=== PATIENT | female | born 1960 | race Caucasian/White ===

== ENCOUNTER → 2020-04-07 11:41 | Outpatient (CLI) | payer OTHER, SELFPAY ==
[2020-04-07 13:51] LABS: COVID19 -Nasal RAPID Negative (Negative)
== END ==
PROVIDERS: PCP Family Medicine; Visit Provider Specialist
DX: Z03.818 Encounter for observation for suspected exposure to other biological agents ruled out (principal)
CPT/HCPCS: 87635

== ENCOUNTER 2020-04-10 09:24 | Day surgery (SDC) | payer OTHER, SELFPAY ==
[2020-04-06 08:19] VITALS: BMI 27.5
[2020-04-10] VITALS (14 sets, daily range): BP systolic 95–124; BP diastolic 50–83; PULSE 65–86; RESP 14–21; TEMP 36.1–37.4; O2SAT 93–96; BMI 26.8
--- NOTE | 2020-04-10 | PATH_ITS ---
[facility] Accession Number: [id number] . 01 Material submitted: . uterus - UTERUS WITH BILATERAL FALLOPIAN TUBES AND OVARIES . 02 Diagnosis: Uterus with Bilateral Fallopian Tubes and Ovaries, Supracervical Hysterectomy and Bilateral Salingo-oophorectomy (Morcellated Specimen Weight 44 grams): Disordered proliferative endometrium; negative for glandular hyperplasia, cytologic atypia or malignancy. Endometrium with a benign endometrial polyp (10 mm in greatest dimension). Myometrium with no significant histomorphologic abnormality. Uterine serosa with no significant histomorphologic abnormality. Ovaries x2 with scant, benign cortical cysts (less than 1 mm). Fallopian tubes x2; negative for epithelial atypia or malignancy. [facility] 04/13/2020 1059 Local . 02 Electronically signed: . Lauryn Sapp MD, Pathologist NPI- [id number] . 01 Gross description: . Received in formalin, labeled with the patient's name and uterus with bilateral fallopian tubes and ovaries, is a morcellated supracervically amputated uterus, with bilateral adnexa in container. The morcellated uterus (44 grams, 6.0 x 5.0 x 3.0 cm in aggregate) is covered with purple-burks dull smooth serosa, pink-burks trabeculated myometrium up to 1.9 cm thick in one fragment and pink-burks flat endometrium up to 0.1 cm thick. A 1.0 x 0.8 x 0.5 cm pedunculated polyp is identified within one fragment, 2.5 cm to the supracervical amputation margin, and has a pink-burks soft solid cut surface. No myometrial nodule is identified. Bilateral adnexa are separate in container. Fallopian tube #1-fimbriated, 4.5 cm length by 0.5 cm diameter, purple-burks serosa, lumen up to 0.2 cm. Ovary #1-2.3 x 1.0 x 0.6 cm, yellow-burks convoluted outer surface, unremarkable pale burks ovarian parenchyma. Fallopian tube #2-fimbriated, 6.5 cm length by 0.5 cm diameter, purple-burks dull serosa, lumen up to 0.2 cm. Ovary #2-2.4 x 1.0 x 0.6 cm, convoluted pale burks outer surface, unremarkable pale burks ovarian parenchyma. Deputy Program Manager sections are submitted. . Summary of sections: A1-2. Endometrial polyp, bisected and entirely submitted, one piece each. A3. Deputy Program Manager endomyometrium, two pieces. A4. Ovary #1, senior patient account representative bisected half, one piece. A5. Fallopian tube #1, fimbria and cross-sections, four pieces. A6. Ovary #2, senior patient account representative bisected half, one piece. A7. Fallopian tube #2, fimbria and cross-sections, four pieces. ([id number]) /MRV 04/11/2020 [facility] Local . 02 Pathologist provided ICD-10: N92.0 . 02 CPT . 163189 Performed at: 01 [facility] [address], [place], [place] [id number] MD Isreal Carlin MD Phone: [phone] Performed at: 02 [facility] [address] [place], [place] [id number] MD Vanessa Hanson MD Phone: [phone]
[2020-04-10] MEDS: ACETAMINOPHEN 325 MG TABLET 975 MG PO (10:02)
[2020-04-10] MEDS: LACTATED RINGERS 1,000 ML 42 ML IV (10:02)
--- NOTE | 2020-04-10 10:32 | PM.PREOP ---
Pre-operative Note COVID-19 COVID-19 status: Negative Result date/Date tested (Pos, Neg/Pending): 04/07/20 Interval Note History & Physical reviewed/Exam performed by Physician: Yes Changes to H&P: No
[2020-04-10] MEDS: CLINDAMYCIN 900 MG/50 ML PIGGYBACK 50 MG IV (10:50)
--- NOTE | 2020-04-10 11:20 | SUR.OPER ---
Lithotomy on padded OR bed. Mullins Pad Positioner under torso. Head on pillow, arms padded and tucked at sides. Legs secured in padded yellow fins stirrups.
[2020-04-10] MEDS: BUPIVACAINE 0.5% W/ EPI (PF) 30 ML VIAL INJ (11:24)
[2020-04-10] MEDS: ROPIVACAINE 0.2% PF 2 MG/ML 10ML AMP 20 ML INJ (11:28)
--- NOTE | 2020-04-10 12:21 | P.OP_ITS ---
Operative Date/Time/Diagnoses Date of procedure: 04/10/20 Time of procedure: 12:21 Pre-op diagnosis: Menorrhagia Post-op diagnosis: same Procedure & Clinicians Procedure: Laparoscopic supracervical hysterectomy with bilateral salpingo oophorectomies Same procedure as scheduled: Yes Indications: Menorrhagia Electrician'S Assistant: Chantale Rutherford Anesthesia Type: General Operative Notes Findings: Normal tubes and ovaries, normal bowel surface, adhesions of the omentum to the anterior abdominal wall below the umbilicus. Adhesion of the uterus to the anterior abdominal wall. Closure Type: primary Specimen(s): other (Uterus above the level of bladder with bilateral tubes and ovaries) Estimated Blood Loss (mL): 50 Blood products transfused: none Procedure in detail: Patient is brought to the operating room where she underwent general anesthesia and placed in low yellowfin stirrups. She was prepped and draped in the usual sterile fashion. A check list was reviewed with the staff in the room prior to beginning of the case. Patient had pulsatile stockings in place and functional. 900 mg of clindamycin were in prior to beginning of the case.. A Daniel catheter was placed. A single-tooth tenaculum was placed on the anterior lip of the cervix and the cervix dilated to a #6 Hegar dilator. The uterine manipulator was placed through the cervix into the uterus with the balloon inflated with 3 mL of air. The area of the umbilical incision and the 5 mm right and left lower quadrant incisions were injected with Marcaine. An incision was made with scalpel. The verries needle was placed into the abdomen and confirmed in the appropriate place with withdrawal on a syringe and then free flow of fluid down through the needle. The abdomen was insufflated with CO2. The needle was removed and a 5 mm trocar placed without difficulty. There did not appear to be any damage is placement of the trocar. The right and left lower quadrant incisions were made with the scalpel and the trochars placed without damage to internal structures. The PK forceps were used to cauterize and cut the adhesions of the omentum to the anterior abdominal wall and free the uterus from the anterior abdominal wall. The PK forceps were used to cauterize the infundibulopelvic ligaments. Sequen tial bites were taken along the mesosalpinx followed by the round ligaments on both sides. Sequential bites were taken down the broad ligaments. The uterine arteries were cauterized. An incision was made above the level bladder pushing the bladder away from the cervix. The DES loop was placed around the uterus and the uterus was amputated above the level of the bladder. Bleeding was controlled with the PK forceps. The PK forceps were used to cauterize in the endocervical canal. A supracervical incision was made and an 11 mm port placed. A 15 mm Endo Catch bag was placed in the abdomen. The uterus, tubes and ovaries were placed in the bag and brought up through the suprapubic port site. The Jean Carlos O was placed. The uterus was hand morselized. The abdomen was reinsufflated and adequate hemostasis was noted. 20 cc of ropivacaine were placed over the cervix and broad ligaments. The trochars were removed and the CO2 allowed escape from the abdomen. The fascia layer of the suprapubic site was repaired with 0 Polysorb suture. Skin was closed with 4-0 Monocryl suture at the suprapubic site and the other 3 sites. The patient went to recovery room in good condition. Counts of instruments and sponges were correct. Complications: none Post-operative Condition: stable Disposition: observation (Home when stable) Plan for aftercare: Routine post laparoscopic supracervical hysterectomy.
--- NOTE | 2020-04-10 13:15 | SUR.PHASEI ---
Pt transported upstairs on room air and left with ADAM Javier and left in stable condition.
--- NOTE | 2020-04-10 13:24 | PC.ADMIT ---
[email or web address] [facility] Admission Note: The patient,Jane Perez,60 y/o, was given written information regarding hospital policies, unit procedures and contact persons. Patient's smoking status: Never smoker. Vital Signs - 8 hr 04/10/20 09:50 04/10/20 12:18 04/10/20 12:21 Temperature 99.3 F 98.3 F Pulse Rate 72 86 79 Respiratory Rate 14 21 17 Blood Pressure 124/75 105/54 L 103/55 L Pulse Oximetry 96 94 94 04/10/20 12:24 04/10/20 12:37 04/10/20 12:45 Temperature 98 F Pulse Rate 74 74 66 Respiratory Rate 17 14 16 Blood Pressure 95/53 L 96/50 L 102/54 L Pulse Oximetry 93 95 96 04/10/20 13:09 Temperature 97 F L Pulse Rate 68 Respiratory Rate 14 Blood Pressure 101/59 L Pulse Oximetry 95 Rec'd pt from PACU to rm 228 at 1308. Pt is AAO x4 and denies pain. Lap sites to abd with bandaids intact. Oriented pt to room, routine, fall risk, use of call light. Pt was instructed to wait for assistance before getting OOB. She verbalizes understanding.
[2020-04-10] MEDS: LACTATED RINGERS 1,000 ML 100 ML IV (13:57)
[2020-04-10] MEDS: INFLUENZA VACCINE 0.5 ML SYRINGE IM (15:39)
[2020-04-10] MEDS: OXYCODONE/ACETAMINOPHEN 5/325 TABLET 2 TAB PO ×2 (17:58→23:46)
[2020-04-10] MEDS: DOCUSATE 250 MG CAPSULE PO (20:57)
--- NOTE | 2020-04-10 22:01 | PC.NURSE ---
Pt post-op Lap Hysterectomy jaycob S&O. Abdominal lap site dressing x4 with sm amount of shaddow drainage. Pt ambulating to bathroom with standby assist voiding without difficulty. Medicated for pain x1 with percocet tabs. IV LR to R Hand IV @ 100mg hr. Anticipates discharge in AM.
[2020-04-11 05:27] VITALS: BP 114/59; PULSE 75; RESP 16; TEMP 36.9; O2SAT 96
--- NOTE | 2020-04-11 05:45 | PC.NURSE ---
Distance Learning Program Coordinator Note-Patient is A/Ox4. Lap bandaids x4 to abdomen D/I with small shadow drainage to each. Scant bloody spotting when voiding. Denies nausea, SL'd after current bag LR infused. Medicated with Percocet for pain.
[2020-04-11] MEDS: OXYCODONE/ACETAMINOPHEN 5/325 TABLET 2 TAB PO ×2 (07:21→11:27)
[2020-04-11 08:00] VITALS: BP 116/58; PULSE 64; RESP 16; TEMP 37.2; O2SAT 96
[2020-04-11] MEDS: DOCUSATE 250 MG CAPSULE PO (09:23)
[2020-04-11] MEDS: SERTRALINE 50 MG TABLET PO (09:23)
[2020-04-11] MEDS: SODIUM CHLORIDE 0.9% FLUSH 10 ML IV (09:24)
--- NOTE | 2020-04-11 10:26 | P.DS_ITS ---
History of Present Illness History of Present Illness Date Patient Seen: 04/11/20 Time Patient Seen: 10:26 Chief complaint: OPB Narrative: Patient is status post laparoscopic supracervical hysterectomy with bilateral salpingo oophorectomy on 04/10/2020 for menorrhagia Discharge Providers Provider Discharge Date: 04/11/20 Primary care physician: Zach Fritz MD Discharge provider: Kemi Arnett MD Summary Hospital Course Discharge Diagnosis: Menorrhagia Hospital Course: Patient underwent a laparoscopic supracervical hysterectomy with bilateral salpingo oophorectomy on 04/10/2020. Patient is ambulatory, urinating, tolerating a regular diet. Vital signs are stable Status at Discharge Cognitive/behavioral status at discharge: oriented Functional status at discharge: independent ambulation Overall status at discharge: patient is progressing back to baseline Time Spent with Patient Time spent: Less than 30 minutes Exam Vital Signs (past 8 hours): - 04/11/20 05:27 04/11/20 08:00 Temperature 98.5 F 99.0 F Pulse Rate 75 64 Respiratory Rate 16 16 Blood Pressure 114/59 L 116/58 L Pulse Oximetry 96 96 Oxygen Delivery Method Room Air Oxygen Flow Rate 0 Narrative Exam Narrative: Abdomen is soft, minimally tender. Dressings are dry. No significant vaginal bleeding. Extremities without edema and nontender. Objective Labs Labs: Laboratory Results - last 24 hr 04/10/20 13:10 Nasal Screen MRSA (PCR) Negative for mrsa [facility] Medical History (Updated 04/10/20 @ 09:42 by Anne Marie Govea RN) Anxiety Cervical spine disease Chronic back pain Chronic cough Constipation DJD (degenerative joint disease) GERD (gastroesophageal reflux disease) GERD (gastroesophageal reflux disease) Headache History of frequent headaches History of pneumonia Prediabetes RLS (restless legs syndrome) Sinus drainage Surgical History (Updated 04/10/20 @ 09:42 by Anne Marie Govea RN) History of cholecystectomy Status post delivery Status post delivery Status post colonoscopy Status post endoscopy Family History (Updated 08/03/15 @ 00:00 by Conversion Provider) Father Age: 87 COPD (chronic obstructive pulmonary disease) Heart disease Hypertension Grandfather Cancer Mother Diabetes mellitus Stroke Sister Age: 66 Hypertension Social History household members: spouse Smoking Status: Never smoker alcohol intake: current Discharge Assessment & Plan Assessment and Plan Assessment: Postoperative laparoscopic supracervical hysterectomy with bilateral salpingo oophorectomy for menorrhagia doing well. Plan of Treatment: Discharge home. Patient has her postop appointment in 1 week schedule. She has her pain medicine at home. She is also to take Motrin and Tylenol as needed Discharge Plan Discharge Plan Patient Disposition: Home Discharge orders & Medications Discharge Orders: Discharge (Order); Ordered 04/11/20 Ordered By: Kemi Arnett Prescriptions: Continued trazodone 50 mg tablet See Rx Instructions .ROUTE .COMPLEX Qty: 90 RF: 3 sertraline 50 mg tablet 50 mg PO DAILY RF: 0 omeprazole 20 mg capsule,delayed release(DR/EC) 20 mg PO QDAY Qty: 90 RF: 3 estradiol 0.05 mg/24 hr patch semiweekly 1 patch transdermal 2XW Qty: 8 RF: 1 oxycodone-acetaminophen 5-325 mg tablet 2 tab PO Q4-6H PRN (Reason: pain) Qty: 30 RF: 0 Discontinued L norgest/e.estradiol-e.estrad [Daysee] 0.15 mg-30 mcg (84)/10 mcg (7) tablets,dose pack,3 month See Rx Instructions .ROUTE .COMPLEX Qty: 91 RF: 4 Follow up/Referrals: Zach Fritz MD [Primary Care Provider] - Kemi Arnett MD [Physician] - As previously scheduled (Patient has scheduled follow-up appointment ) Diet/Activity/Treatments Diet: Regular Activity: No restrictions Skin/Wound/Dressing Care Report to your healthcare provider any signs of infection, such as:: chills, fever, increased pain and unusual redness Dressing: Remove Band-Aids today. Leave Steri-Strips in place. Can get wet just pat dry. Visit Report/Discharge Packet Instructions: DI for Hysterectomy, DI for Laparoscopy Discharge Data Primary Care Provider: Zach Fritz Attending Provider: Kemi Arnett
--- NOTE | 2020-04-11 11:40 | CM.DANOTE ---
Discharge Planning/Care Management DCP: assessment: case received, EMR reviewed and d/c to home order noted. Met now with pt after checking in with RN Debbi. Introduced self and role. Pt is found up and independent in the room, smiling. She says she is feeling good and ready to go home. Her is on his way. Pt was admitted yesterday for a scheduled gynecological surgery. Surgeon: Dr. Arnett. PCP: Zach Fritz: Dora P: home today as per above. CM Discharge Assessment Start: 04/11/20 11:39 Freq: Status: Active Protocol: Document 04/11/20 11:40 ITV (Rec: 04/11/20 11:40 ITV [id number]) Discharge Planning Assessment Advance Directives? No Advance Directives on File No History Provided By Patient,Medical Record Household Members spouse Independent with ADL's Yes Is patient alert and oriented? Yes Review Status In Process Pre-Anesthesia Assessment Start: 04/06/20 08:19 Freq: Status: Complete Protocol: Document 04/06/20 08:19 CAB (Rec: 04/06/20 08:25 CAB [id number]) Pre-Anesthesia Assessment Patient Information Reviewed Via Chart Review Primary Care Provider Zach Fritz Seen Specialist in Last 12 Months Yes Specialist Seen Education Rep Primary Language [place] Senior Escrow Officer Required No Height 172.72 cm Weight 82.1 kg Body Mass Index (BMI) 27.5 Barriers to Learning None Hx Anesthesia Reactions No Anesthesia Review Requested No alcohol intake current Smoking Status Never smoker Pain Present Pain Reported Comment Chronic lbp History of Falling (Recent or History of No ) Patient is completely paralyzed or No completely immobile Is patient on oxygen? No Hx Sleep Apnea No Currently Taking a Beta Rolo No Anti-Coagulant Therapy No Has a Financial Consultant No Cardiac Testing No Hx Pacemaker/ICD No Pacemaker Rep Required? No Cardiac Clearance Received Not Applicable Urinary Catheter Present No Hx Urinary Self Catheterization No Diabetes No Patient No Lactating No Have you had any close contact with Unknown someone diagnosed with COVID-19? Marital Status Patient Discharge Plan Description Return Home
== END 2020-04-11 11:40 | disposition home or self-care (01) ==
LOC: OR 09:26 → AC 09:27 → ICU 12:07
PROVIDERS: PCP Family Medicine; Referring Provider Specialist; Visit Provider Specialist
PROC: 0UT94ZL Resection of Uterus, Supracervical, Percutaneous Endoscopic Approach (ICD-10-PCS; CPT 58542; principal; 2020-04-10 10:45)
DX: N84.0 Polyp of corpus uteri (principal); Z23 Encounter for immunization; K66.0 Peritoneal adhesions (postprocedural) (postinfection); N83.292 Other ovarian cyst, left side; N83.291 Other ovarian cyst, right side
CPT/HCPCS: 58542; 87797; 90471; 90656; J0330; J1100; J1170; J2250; J2405; J2704; J2795; J3010; Q2038